=== PATIENT | female | born 1990 | race Caucasian/White ===

== ENCOUNTER → 2020-12-21 17:42 | Outpatient (CLI) | payer OTHER, SELFPAY ==
--- NOTE | 2020-12-21 17:46 | DI.RAD.S_ITS ---
PROCEDURE: XR LUMBAR SPINE MIN 4V INDICATIONS: LOWER BACK PAIN TECHNIQUE: 5 views of the lumbar spine were acquired. COMPARISON: None. FINDINGS: Bones: No fracture. Multilevel degenerative endplate sclerosis and spurring. Diffuse facet arthropathy. Moderate narrowing of the L5-S1 disc space. Partially visualized lateral curvature. Soft tissues: Overlying bowel gas pattern is normal. No suspicious soft tissue calcifications. Oblique images: No pars defects. IMPRESSION: Moderate L5-S1 spondylosis and diffuse facet arthropathy Dictated by: Nghia Garcia M.D. on 12/22/2020 at 9:37 Approved by: Nghia Garcia M.D. on 12/22/2020 at 10:02
== END ==
PROVIDERS: PCP Family Medicine; Referring Provider Family Medicine; Visit Provider Family Medicine
DX: M54.5 Low back pain (principal); M47.817 Spondylosis without myelopathy or radiculopathy, lumbosacral region; G89.29 Other chronic pain
CPT/HCPCS: 72110